=== PATIENT | male | born 1960 | race Two or more races ===

== ENCOUNTER 2023-06-24 11:14 | Inpatient (IN) | payer OTHER ==
[~2023-06-24] VITALS: Ht 180.3 cm; Wt 117.9 kg
[2023-06-24] MEDS ORDERED: IRBE300T19 PO (12:14)
[2023-06-24 12:20] LABS: BASOPHILS % (AUTO) 0.6 % (0.0-2.0); EOSINOPHILS # (AUTO) 0.3 K/uL (0.0-0.7); EOSINOPHILS % (AUTO) 4.3 % (0.0-6.0); HEMATOCRIT 46 % (39-51); HEMOGLOBIN 15.2 g/dL (13.5-17.5); LYMPHOCYTES % (AUTO) 13.4 % (20.0-44.0); MEAN CORPUSCULAR HEMOGLOBIN 27 PG (26.0-33.0); MEAN CORPUSCULAR HGB CONC 33 g/dl (31.0-36.0); MEAN CORPUSCULAR VOLUME 82 fL (80-96); MONOCYTES # (AUTO) 0.5 K/uL (0.1-1.30); NEUTROPHILS # (AUTO) 5.5 K/uL (1.8-8.9); NEUTROPHILS % (AUTO) 74.7 % (43.0-81.0); PLATELET COUNT (AUTO) 195 K/uL (150-450); RED BLOOD CELL COUNT(AUTO) 5.61 MIL/uL (4.5-6.0); RED CELL DISTRIBUTION WIDTH 15.7 % (11.5-15.0); WHITE BLOOD COUNT (AUTO) 7.4 K/uL (4.3-11.0)
[2023-06-24 12:25] LABS: PARTIAL THROMBOPLASTIN TIME 24.1 SEC (24.3-34.3); PROTHROMBIN TIME 10.6 SECS (9.2-11.1)
[2023-06-24 12:26] LABS: CALCIUM, SERUM 8.7 mg/dL (8.5-10.1); CREATININE 1.4 mg/dL (0.6-1.3); POTASSIUM 3.8 mmol/L (3.5-5.1)
[2023-06-24] MEDS ORDERED: ONDANSETRON HCL/PF 4 MG/2 ML VIAL IVP PRN (12:30)
[2023-06-24] MEDS: hydrALAZINE HCL IV 20 MG VIAL IV PRN (15:00)
[2023-06-24 15:50] VITALS: BP 139/97; O2SAT 99
[2023-06-24 20:00] VITALS: BP 161/106; TEMP 98.4; O2SAT 98
[2023-06-24 22:40] VITALS: BP 161/106; TEMP 98.4; O2SAT 98
[2023-06-25] MEDS: MORPHINE SULFATE INJ 2 MG/ML DISP.SYRIN IV PRN (06:56)
[2023-06-25 07:32] LABS: ALBUMIN 2.9 g/dL (3.4-5.0); CALCIUM, SERUM 8.3 mg/dL (8.5-10.1); MAGNESIUM 2.3 mg/dL (1.8-2.4); PHOSPHORUS 2.9 mg/dL (2.5-4.9); TOTAL PROTEIN, SERUM 6.7 g/dL (6.4-8.2)
[2023-06-25] MEDS: LOSARTAN POTASSIUM 50 MG TABLET PO SCH (08:16)
[2023-06-25 08:17] VITALS: BP_SYST 107; BP_SYST 151; BP_DIAS 107; BP_DIAS 81; TEMP 97.5; TEMP 97.7; O2SAT 99
[2023-06-25 09:16] LABS: BASOPHILS % (AUTO) 0.2 % (0.0-2.0); EOSINOPHILS # (AUTO) 0.2 K/uL (0.0-0.7); EOSINOPHILS % (AUTO) 1.7 % (0.0-6.0); HEMATOCRIT 44 % (39-51); HEMOGLOBIN 14.3 g/dL (13.5-17.5); LYMPHOCYTES # (AUTO) 0.9 K/uL (0.8-4.8); LYMPHOCYTES % (AUTO) 9.8 % (20.0-44.0); MEAN CORPUSCULAR HEMOGLOBIN 28 PG (26.0-33.0); MEAN CORPUSCULAR HGB CONC 33 g/dl (31.0-36.0); MEAN CORPUSCULAR VOLUME 84 fL (80-96); MONOCYTES # (AUTO) 0.8 K/uL (0.1-1.30); MONOCYTES % (AUTO) 8.5 % (2.0-12.0); NEUTROPHILS # (AUTO) 7.1 K/uL (1.8-8.9); NEUTROPHILS % (AUTO) 79.8 % (43.0-81.0); PLATELET COUNT (AUTO) 194 K/uL (150-450); RED BLOOD CELL COUNT(AUTO) 5.19 MIL/uL (4.5-6.0); RED CELL DISTRIBUTION WIDTH 15.8 % (11.5-15.0); WHITE BLOOD COUNT (AUTO) 8.9 K/uL (4.3-11.0)
[2023-06-25] MEDS ORDERED: VANCOMYCIN 1 GM VIAL ONE (11:04)
[2023-06-25] MEDS ORDERED: BUPIVACAINE 0.5 % PF 150 MG/30 ML VIAL ONE (11:04)
[2023-06-25 11:28] LABS: APPEARANCE,URINE CLEAR (CLEAR); BILIRUBIN,URINE 1+ (NEGATIVE); BLOOD, URINE NEGATIVE Ery/uL (NEGATIVE); COLOR,URINE DARK YELLOW (YELLOW); KETONES,URINE NEGATIVE (NEGATIVE); LEUKOCYTE ESTERASE ,URINE NEGATIVE (NEGATIVE); NITRITE, URINE NEGATIVE (NEGATIVE); PROTEIN,URINE 2+ mg/dl (NEGATIVE); UGLUCOSE NEGATIVE (NEGATIVE)
[2023-06-25 12:12] LABS: ADD URINE CULTURE NO; BACTERIA,URINE 1+ /HPF (None Seen); MUCUS,URINE Few /LPF (None Seen); RBC,URINE NONE SEEN /HPF (0-2); SQUAMOUS EPITHELIAL CELL,UR None Seen /HPF (None Seen); WBC,URINE 0-2 /HPF (0-3)
[2023-06-25] MEDS ORDERED: ROCURONIUM BROMIDE 50 MG/5 ML ONE (14:32)
[2023-06-25] MEDS ORDERED: HYDROMORPHONE INJ 2 MG/ML DISP.SYRIN ONE (16:03)
[2023-06-25] MEDS ORDERED: FENTANYL PF 250MCG/5ML AMPUL ONE (16:03)
[2023-06-25 16:05] VITALS: BP 152/98; TEMP 98.8; O2SAT 97
[2023-06-25] MEDS ORDERED: SEVOFLURANE 250 ML BOTTLE IH ONE (16:59)
[2023-06-25] MEDS ORDERED: DESFLURANE 240 ML BOTTLE IH ONE (16:59)
[2023-06-25] MEDS ORDERED: LABETALOL HCL IV 100MG VIAL ONE (18:04)
[2023-06-25] MEDS ORDERED: ONDANSETRON HCL/PF - ER 4 MG/2 ML VIAL IVP PRN (19:30)
[2023-06-25 20:00] VITALS: BP 153/91; TEMP 97.6; O2SAT 94
[2023-06-25] MEDS: IV D5/0.45 NACL W/20 MEQ KCL 1L IV SCH (20:39)
[2023-06-25] MEDS: HEPARIN SODIUM, PORCINE 5000 UNITS/1 ML VIAL SQ SCH (20:39)
[2023-06-25] MEDS: ANCEF 1 GM/50 ML D5W IV SCH (23:00)
[2023-06-25] MEDS: MORPHINE SULFATE INJ 4 MG/ML DISP.SYRIN IV PRN (23:46)
[2023-06-26] MEDS ORDERED: ONDANSETRON HCL/PF 4 MG/2 ML VIAL IVP PRN (07:30)
[2023-06-26 07:35] LABS: HEMATOCRIT 38 % (39-51); HEMOGLOBIN 12.8 g/dL (13.5-17.5); LYMPHOCYTES # (AUTO) 0.4 K/uL (0.8-4.8); LYMPHOCYTES % (AUTO) 3.5 % (20.0-44.0); MEAN CORPUSCULAR HEMOGLOBIN 28 PG (26.0-33.0); MEAN CORPUSCULAR HGB CONC 33 g/dl (31.0-36.0); MEAN CORPUSCULAR VOLUME 83 fL (80-96); MONOCYTES # (AUTO) 0.9 K/uL (0.1-1.30); MONOCYTES % (AUTO) 7.2 % (2.0-12.0); NEUTROPHILS # (AUTO) 10.7 K/uL (1.8-8.9); NEUTROPHILS % (AUTO) 89.3 % (43.0-81.0); PLATELET COUNT (AUTO) 180 K/uL (150-450); RED CELL DISTRIBUTION WIDTH 15.5 % (11.5-15.0); WHITE BLOOD COUNT (AUTO) 11.9 K/uL (4.3-11.0)
[2023-06-26 07:36] LABS: ALBUMIN 2.7 g/dL (3.4-5.0); BILIRUBIN,TOTAL 0.6 mg/dL (0.2-1.0); CALCIUM, SERUM 7.7 mg/dL (8.5-10.1); CREATININE 1.4 mg/dL (0.6-1.3); MAGNESIUM 2.1 mg/dL (1.8-2.4); PHOSPHORUS 3.9 mg/dL (2.5-4.9); POTASSIUM 4.6 mmol/L (3.5-5.1); TOTAL PROTEIN, SERUM 6.4 g/dL (6.4-8.2)
[2023-06-26 08:21] VITALS: BP 136/97; TEMP 98.3; O2SAT 93
[2023-06-26 16:03] VITALS: BP 130/77; TEMP 98.6; O2SAT 94
[2023-06-26 20:00] VITALS: BP 137/81; TEMP 98.6; O2SAT 96
[2023-06-26 20:15] VITALS: BP 137/81; TEMP 98.6; O2SAT 96
[2023-06-26] MEDS: HYDROCODONE/APAP 10/325MG TABLET PO PRN (20:45)
[2023-06-27 08:00] VITALS: BP 135/98; TEMP 99; O2SAT 98
[2023-06-27] MEDS ORDERED: POTASSIUM CHLORIDE 20 MEQ TAB.PRT.SR PO SCH (09:00)
[2023-06-27] MEDS: FUROSEMIDE 20 MG/2 ML VIAL IV ONE (09:43)
[2023-06-27] MEDS: IV D5/0.45 NACL 1,000 ML IV PRN (10:11)
[2023-06-27] MEDS: AZITHROMYCIN 500 MG in IV D5W 250 ML IV SCH (10:15)
[2023-06-27 11:11] LABS: BASOPHILS % (AUTO) 0.2 % (0.0-2.0); EOSINOPHILS # (AUTO) 0.2 K/uL (0.0-0.7); EOSINOPHILS % (AUTO) 2.1 % (0.0-6.0); HEMATOCRIT 40 % (39-51); HEMOGLOBIN 13.2 g/dL (13.5-17.5); LYMPHOCYTES # (AUTO) 0.8 K/uL (0.8-4.8); LYMPHOCYTES % (AUTO) 8.3 % (20.0-44.0); MEAN CORPUSCULAR HEMOGLOBIN 28 PG (26.0-33.0); MEAN CORPUSCULAR HGB CONC 33 g/dl (31.0-36.0); MEAN CORPUSCULAR VOLUME 85 fL (80-96); MONOCYTES # (AUTO) 0.7 K/uL (0.1-1.30); MONOCYTES % (AUTO) 7.2 % (2.0-12.0); NEUTROPHILS # (AUTO) 7.5 K/uL (1.8-8.9); NEUTROPHILS % (AUTO) 82.2 % (43.0-81.0); PLATELET COUNT (AUTO) 178 K/uL (150-450); RED BLOOD CELL COUNT(AUTO) 4.77 MIL/uL (4.5-6.0); RED CELL DISTRIBUTION WIDTH 15.6 % (11.5-15.0); WHITE BLOOD COUNT (AUTO) 9.1 K/uL (4.3-11.0)
[2023-06-27 17:13] VITALS: BP 150/92; TEMP 98.8; O2SAT 98
[2023-06-27 19:33] LABS: APPEARANCE,URINE CLEAR (CLEAR); BILIRUBIN,URINE NEGATIVE (NEGATIVE); BLOOD, URINE NEGATIVE Ery/uL (NEGATIVE); COLOR,URINE YELLOW (YELLOW); KETONES,URINE NEGATIVE (NEGATIVE); LEUKOCYTE ESTERASE ,URINE NEGATIVE (NEGATIVE); NITRITE, URINE NEGATIVE (NEGATIVE); PROTEIN,URINE 1+ mg/dl (NEGATIVE); UGLUCOSE NEGATIVE (NEGATIVE)
[2023-06-27 19:40] LABS: CREATININE, URINE 63.2 MG/DL (30.0-125.0); URINE TOTAL PROTEIN 48.6 mg/dL (0-11.9)
[2023-06-27 20:30] LABS: EOSINOPHIL,URINE None Seen
[2023-06-27 20:35] LABS: WBC,URINE NONE SEEN /HPF (0-3)
[2023-06-27 20:36] LABS: ADD URINE CULTURE NO; BACTERIA,URINE None seen /HPF (None Seen)
[2023-06-27 20:37] LABS: RBC,URINE 0-2 /HPF (0-2); SQUAMOUS EPITHELIAL CELL,UR Rare /HPF (None Seen)
[2023-06-28 07:54] LABS: BASOPHILS % (AUTO) 0.2 % (0.0-2.0); EOSINOPHILS # (AUTO) 0.2 K/uL (0.0-0.7); EOSINOPHILS % (AUTO) 2.3 % (0.0-6.0); HEMATOCRIT 40 % (39-51); HEMOGLOBIN 13.4 g/dL (13.5-17.5); LYMPHOCYTES # (AUTO) 0.9 K/uL (0.8-4.8); LYMPHOCYTES % (AUTO) 9.1 % (20.0-44.0); MEAN CORPUSCULAR HEMOGLOBIN 28 PG (26.0-33.0); MEAN CORPUSCULAR HGB CONC 33 g/dl (31.0-36.0); MEAN CORPUSCULAR VOLUME 84 fL (80-96); MONOCYTES # (AUTO) 0.9 K/uL (0.1-1.30); NEUTROPHILS # (AUTO) 8.2 K/uL (1.8-8.9); NEUTROPHILS % (AUTO) 79.4 % (43.0-81.0); PLATELET COUNT (AUTO) 199 K/uL (150-450); RED BLOOD CELL COUNT(AUTO) 4.81 MIL/uL (4.5-6.0); RED CELL DISTRIBUTION WIDTH 15.8 % (11.5-15.0); WHITE BLOOD COUNT (AUTO) 10.3 K/uL (4.3-11.0)
[2023-06-28 08:25] LABS: ALBUMIN 2.8 g/dL (3.4-5.0); BILIRUBIN,TOTAL 0.9 mg/dL (0.2-1.0); CALCIUM, SERUM 8.6 mg/dL (8.5-10.1); CREATININE 1.1 mg/dL (0.6-1.3); MAGNESIUM 2.1 mg/dL (1.8-2.4); PHOSPHORUS 2.7 mg/dL (2.5-4.9); POTASSIUM 3.8 mmol/L (3.5-5.1); TOTAL PROTEIN, SERUM 6.9 g/dL (6.4-8.2)
[2023-06-28 08:53] VITALS: BP 177/109; TEMP 98.4; O2SAT 98
[2023-06-28] MEDS: hydrALAZINE HCL 50 MG TABLET PO SCH (10:04)
[2023-06-28] MEDS: VALSARTAN 80 MG TABLET PO SCH (10:05)
[2023-06-28] MEDS: ISOSORBIDE DINITRATE (20MG) 20 MG TABLET PO SCH (10:06)
[2023-06-28 12:14] VITALS: BP 157/99
[2023-06-28 16:15] VITALS: BP 127/85; TEMP 98.5; O2SAT 96
[2023-06-28] MEDS: ACETAMINOPHEN 325 MG TABLET PO PRN (20:54)
[2023-06-29 08:00] VITALS: BP 153/117; TEMP 97.7; O2SAT 97
[2023-06-29] MEDS: DILTIAZEM HCL CD 240 MG PO SCH (10:28)
[2023-06-29] MEDS: hydrALAZINE HCL 50 MG TABLET PO SCH (12:09)
[2023-06-29 16:00] VITALS: BP 132/86; TEMP 98.7; O2SAT 95
[2023-06-29 20:00] VITALS: BP 116/72; TEMP 98.8; O2SAT 97
[2023-06-30 07:30] VITALS: BP 154/114; TEMP 97.7; O2SAT 98
[2023-06-30 08:07] LABS: COMPLEMENT C3, SERUM 168 mg/dL (82-167); COMPLEMENT C4, SERUM 36 mg/dL (12-38)
[2023-06-30 10:07] LABS: *ANA ANTI-CENTROMERE B AB <0.2 AI (0.0-0.9); *ANA ANTI-DNA(DS) AB, QN <1 IU/mL (0-9); *ANA ANTI-JO-1 <0.2 AI (0.0-0.9); *ANA ANTICHROMATIN ANTIBODY <0.2 AI (0.0-0.9); *ANA RNP ANTIBODIES <0.2 AI (0.0-0.9); *ANA SJOGREN'S ANTI-SS-A <0.2 AI (0.0-0.9); *ANA SJOGREN'S ANTI-SS-B <0.2 AI (0.0-0.9); *ANAANTI-SCLERODERMA-70 AB <0.2 AI (0.0-0.9); *ANASMITH AB <0.2 AI (0.0-0.9)
[2023-06-30 12:06] LABS: HEPATITIS B SURFACE AB Non Reactive (.)
[2023-06-30] MEDS ORDERED: ISOS20TA8 PO (12:26)
[2023-06-30] MEDS ORDERED: HYDR-3972 PO (12:26)
[2023-06-30] MEDS ORDERED: AZIT500T4 PO (12:26)
[2023-06-30] MEDS ORDERED: VALS80TA31 PO (12:26)
[2023-06-30] MEDS ORDERED: DILT240C88 PO (12:26)
[2023-06-30 13:45] VITALS: BP 115/75
== END 2023-06-30 14:30 | disposition home or self-care (01) | DRG 492 ==
LOC: ER 11:20 → MED 14:17
PROVIDERS: ADMIT Internal Medicine; ATTEND Nurse Practitioner Family
PROC: 0QSH04Z Reposition Left Tibia with Internal Fixation Device, Open Approach (ICD-10-PCS; principal; 2023-06-25)
PROC: 0QSK04Z Reposition Left Fibula with Internal Fixation Device, Open Approach (ICD-10-PCS; 2023-06-25)
DX: S82.872A Displaced pilon fracture of left tibia, initial encounter for closed fracture (principal); J15.9 Unspecified bacterial pneumonia; N17.9 Acute kidney failure, unspecified; W19.XXXA Unspecified fall, initial encounter; S82.832A Other fracture of upper and lower end of left fibula, initial encounter for closed fracture; I48.91 Unspecified atrial fibrillation; N18.2 Chronic kidney disease, stage 2 (mild); Z79.899 Other long term (current) drug therapy; W11.XXXA Fall on and from ladder, initial encounter; Y92.9 Unspecified place or not applicable; E66.01 Morbid (severe) obesity due to excess calories; Z68.36 Body mass index [BMI] 36.0-36.9, adult; I13.10 Hypertensive heart and chronic kidney disease without heart failure, with stage 1 through stage 4 chronic kidney disease, or unspecified chronic kidney disease; E88.09 Other disorders of plasma-protein metabolism, not elsewhere classified; G47.9 Sleep disorder, unspecified; D86.9 Sarcoidosis, unspecified
CPT/HCPCS: 36415; 71045-TC; 71250-TC; 73590-TC; 73610-TC; 80048-TC; 80053-TC; 81001; 82570-TC; 83735-TC; 84100-TC; 84300-TC; 85025-TC; 85652-TC; 85730-TC; 86225; 86235; 86706; 86803; 86850-TC; 87340; 93307-TC; 97110-TC; 97112-TC; 97116-TC; 97530-TC; A4217; A4223; A4649; A6403; C1713; G0378; J0330; J0360; J0456; J0690; J1100; J1170; J1644; J1940; J2270; J2405; J3010; J3370; J3480; J3490; J7030; J7050; J7060